=== PATIENT | female | born 1990 | race African-American/Black ===

== ENCOUNTER 2017-10-22 05:11 | Emergency (ER) | payer SELFPAY ==
[~2017-10-22] VITALS: Ht 167.6 cm; Wt 68.0 kg
[2017-10-22 06:11] LABS: URINE BILIRUBIN - DIPSTICK NEGATIVE (NEGATIVE); URINE BLOOD DIPSTICK NEGATIVE (NEGATIVE); URINE COLOR YELLOW; URINE GLUCOSE - DIPSTICK NEGATIVE (NEGATIVE); URINE KETONE NEGATIVE (NEGATIVE); URINE LEUK ESTERASE NEGATIVE (NEGATIVE); URINE NITRITE - DIPSTICK NEGATIVE (Negative); URINE PROTEIN - DIPSTICK NEGATIVE (NEG-TRACE); URINE SPECIFIC GRAVITY 1.025
[2017-10-22 06:12] LABS: URINE CLARITY SL CLOUDY
[2017-10-22 06:17] LABS: HEMATOCRIT 37.3 % (37.0-47.0); HEMOGLOBIN 12.6 g/dl (12.0-16.0); IMMATURE GRANULOCYTES 0.3 % (0.0-1.0); MEAN CELL VOLUME 93.7 fL CALC (80.0-100.0); MEAN CORPUSCULAR HGB 31.7 pG CALC (26.0-32.0); MEAN CORPUSCULAR HGB CONC 33.8 g/L CALC (32.0-36.0); NEUT# 3.27 thou/uL (2.00-7.15); RED BLOOD COUNT 3.98 mill/uL (4.20-5.60)
[2017-10-22 06:22] LABS: ALBUMIN 4.2 g/dL (3.2-5.0); ALKALINE PHOSPHATASE 77 u/l (38-126); AMYLASE 85 u/l (30-110); ANION GAP 16 (6-22 (CALC)); BILIRUBIN, TOTAL 0.4 mg/dL (0.0-1.4); BUN 10 mg/dL (7-17); BUN/CREATININE RATIO 13 (12-20 (CALC)); CARBON DIOXIDE 22 mmol/l (22-30); CHLORIDE 107 mmol/l (95-108); CREATININE 0.7 mg/dL (0.5-1.0); GFR > 60 ML/MIN (>=60 (CALC)); GFR FOR AFR.AMER. > 60 ML/MIN (>=60 (CALC)); LIPASE 109 u/l (23-300); SGOT/AST 25 u/l (14-36); SGPT/ALT 22 u/l (9-52); SODIUM 141 mmol/l (137-146); TOTAL PROTEIN 7.6 g/dL (6.3-8.2)
[2017-10-22 07:01] VITALS: BP 110/62
== END 2017-10-22 07:00 | disposition home or self-care (01) | DRG 781 ==
LOC: ED 05:11
PROVIDERS: Emergency Medicine
DX: O26.899 Other specified pregnancy related conditions, unspecified trimester (principal); R10.9 Unspecified abdominal pain

== ENCOUNTER 2017-10-25 07:59 | Emergency (ER) | payer SELFPAY ==
[~2017-10-25] VITALS: Ht 167.6 cm; Wt 64.0 kg
[2017-10-25 08:56] LABS: URINE BILIRUBIN - DIPSTICK NEGATIVE (NEGATIVE); URINE BLOOD DIPSTICK NEGATIVE (NEGATIVE); URINE COLOR YELLOW; URINE GLUCOSE - DIPSTICK NEGATIVE (NEGATIVE); URINE KETONE TRACE mg/dL (NEGATIVE); URINE LEUK ESTERASE NEGATIVE (NEGATIVE); URINE NITRITE - DIPSTICK NEGATIVE (Negative); URINE PROTEIN - DIPSTICK NEGATIVE (NEG-TRACE); URINE SPECIFIC GRAVITY 1.025
[2017-10-25 08:57] LABS: URINE CLARITY CLEAR
[2017-10-25 09:04] LABS: INFLUENZA A NONE DETECTED (NONE DETECT); INFLUENZA B NONE DETECTED (NONE DETECT)
[2017-10-25] MEDS ORDERED: AMOXICILLIN500 M2 PO (09:06)
[2017-10-25 09:14] VITALS: BP 112/68
== END 2017-10-25 09:30 | disposition home or self-care (01) | DRG 153 ==
LOC: ED 07:59
PROVIDERS: Family Medicine
DX: J02.9 Acute pharyngitis, unspecified (principal); R05 Cough; R09.89 Other specified symptoms and signs involving the circulatory and respiratory systems